=== PATIENT | female | born 1940 | race Caucasian/White ===

== ENCOUNTER 2017-07-10 15:29 | Inpatient (IN) ==
--- NOTE | 2017-07-10 15:40 | Emergency Department Note ---
Disposition Clinical Impression: Congestive heart failure Disposition: Admitted As Inpatient Condition: Fair Time of Disposition: 17:25 ([facility] ) SOB HPI - General Stated Complaint: copd Time Seen by Provider: 07/10/17 15:30 Source: patient Mode of arrival: ambulatory Limitations: no limitations Nursing Notes Reviewed: Yes Vital Signs Reviewed: Yes - History of Present Illness Shortness of breath worsening over the past couple days really got bad today when she dropped her sats and would not come back up patient states she swollen she is edematous last time she did this was on the holidays at [facility] year ago after she turkey and ham states that she has been really good about not doing that patient states though that her sats would not come up EMS came out gave her an additional 40 of Lasix increased her oxygen at 4 L to get her O2 sats of just 90% as result patient was brought to the ER patient normally goes to [facility] 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 Denies: chest pain, pain with inspiration, fever, cough, sputum production, lower extremity pain, polyuria, polydipsia, parasthesias, hemoptysis, diaphoresis, nausea/ vomiting, syncope, abdominal pain, rash, sense of impending doom Treatment prior to arrival: oxygen, diuretics - Related Data Home Medications Medication Instructions Recorded Confirmed Acetaminophen [Tylenol Arthritis] 650 mg PO Q4-6H PRN 05/17/16 07/10/17 Aspirin [Lo-Dose Aspirin EC] 81 mg PO DAILY 05/17/16 07/10/17 Cholecalciferol (Vitamin D3) 2,000 unit PO DAILY 05/17/16 07/10/17 [Vitamin D3] Diltiazem HCl [Diltiazem ER] 240 mg PO DAILY 05/17/16 07/10/17 Esomeprazole Magnesium [Nexium] 40 mg PO DAILY 05/17/16 07/10/17 Folic Acid 1 mg PO DAILY 05/17/16 07/10/17 Furosemide [Lasix] 20 mg PO DAILY 05/17/16 07/10/17 Levothyroxine [Synthroid] 100 mcg PO 0630 05/17/16 07/10/17 Loratadine [Claritin] 10 mg PO DAILY 05/17/16 07/10/17 Meloxicam [Mobic] 15 mg PO DAILY 05/17/16 07/10/17 Metoprolol XL (24 HR) Succ [Toprol 100 mg PO DAILY 05/17/16 07/10/17 XL] Polyethylene Glycol 3350 [MiraLAX] 17 gm PO DAILY 05/17/16 07/10/17 Ranitidine HCl [Heartburn Relief] 150 mg PO BID 05/17/16 07/10/17 Losartan [Cozaar] 50 mg PO DAILY 07/03/16 07/10/17 Albuterol Sulfate [Proair Hfa] 2 puff IH QID PRN 07/10/17 07/10/17 Budesonide/Formoterol 160/4.5 2 puff IH BIDR 07/10/17 07/10/17 [Symbicort 160/4.5] Docusate Sodium [Stool Softener] 250 mg PO BID 07/10/17 07/10/17 Fluticasone Propionate [Flovent 50 mcg IH DAILY 07/10/17 07/10/17 Diskus] Montelukast [Singulair] 10 mg PO DAILY 07/10/17 07/10/17 Propylene Glycol/Peg 400 [Systane 10 ml OP AD PRN 07/10/17 07/10/17 Gel Eye Drops] Sucralfate [Carafate] 1 gm PO QIDAC 07/10/17 07/10/17 Allergies Allergy/AdvReac Type Severity Reaction Status Date / Time Penicillins Allergy Hives Verified 05/17/16 19:32 codeine AdvReac Hallucinati Verified 05/17/16 19:31 ng Erythromycin Base AdvReac Vomiting Verified 05/17/16 19:32 lisinopril AdvReac Cough Verified 05/17/16 19:31 All systems ED: reviewed and negative except as stated. Review of Systems: As Per HPI Constitutional: Reports: weakness. Denies: fever, chills Eyes: Denies: eye pain ENT ED: Denies: ear pain, throat pain, congestion, dysphagia Cardiovascular: Reports: palpitations, dyspnea on exertion, orthopnea. Denies: chest pain Respiratory: Reports: dyspnea, wheezes. Denies: cough Gastrointestinal: Denies: abdominal pain, nausea Genitourinary: Denies: urgency, dysuria Musculoskeletal: Denies: back pain, neck pain Integumentary: Denies: rash Neurological: Denies: headache Psychiatric: Denies: anxiety Endocrine: Denies: fatigue Hematological/Lymphatic: Denies: easy bleeding Allergic/Immunologic: Denies: facial swelling Past Medical History - Past Medical History Attestation: Yes The following information was validated with the patient. Source: patient, old records reviewed, nursing notes reviewed Medical history: Reports: arthritis, atrial fibrillation, GERD, hyperlipidemia, hypertension, thyroid disease Psychiatric history: Reports: no psych history - Social History Smoking Status: Former smoker Smokeless Tobacco Status: No Alcohol use: Reports: none Drug use: Reports: none Physical Exam - General Limitations: no limitations General appearance: alert, in no apparent distress, anxious - Head Head exam: atraumatic, normocephalic, normal inspection - Eye Eye exam: Present: normal appearance, PERRL, EOMI - ENT ENT exam: normal exam, normal oropharynx, mucous membranes moist - Neck Neck exam: Present: normal inspection, full ROM, trachea midline - Chest Chest inspection: Present: normal inspection, symmetric chest wall rise - Respiratory Respiratory exam: Present: normal lung sounds bilaterally - Cardiovascular Cardiovascular exam: Present: regular rate, normal rhythm, normal heart sounds - Abdominal Exam Abdominal exam: Present: soft, Non-Tender, normal bowel sounds. Absent: mass, pulsatile mass - Expanded Upper Extremity Exam Shoulder exam: Present: normal inspection, full ROM Arm exam: Present: normal inspection, full ROM Elbow exam: Present: normal inspection, full ROM Forearm/Wrist exam: Present: normal inspection, full ROM, swelling Hand exam: Present: normal inspection, full ROM, swelling Neurosensory exam: Normal: radial nerve, ulnar nerve, median nerve Vascular exam: Normal: capillary refill, radial pulse, ulnar pulse - Expanded Lower Extremity Exam Hip/Pelvis exam: Present: normal inspection, full ROM Upper leg exam: Present: normal inspection, full ROM Knee exam: Present: normal inspection, full ROM Lower leg exam: Present: normal inspection, full ROM, swelling (distal 2/3rds) Ankle exam: Present: normal inspection, full ROM, swelling Foot/toe exam: Present: normal inspection, full ROM, swelling Neurovascular/Tendon exam: Present: normal capillary refill, normal fine/light touch. Absent: motor deficit, sensory deficit, tendon deficit Gait: observed and normal - Back Exam Back exam: Present: normal inspection, full ROM. Absent: muscle spasm - Neurological Exam Neurological exam: Present: alert, oriented X3, CN II-XII intact, normal gait - Psychiatric Psychiatric exam: Present: normal affect, normal mood - Skin Skin exam: Present: warm, dry, intact, normal color Course Course Narrative: Patient be given 40 Lasix just prior to arrival patient was seen and examined patient shows significant edema of the extremities with pitting noted the patient appears to be clear nail should with any type of activity she does drop down into the high 70s low 80s even on 4 L O2 nasal [place] some of this is normal for her but not popping back up into the low 90s high 80s is not normal for her as a result will be admitted for observation Vital Signs Temperature 97.0 F L 07/10/17 15:39 Pulse Rate 82 07/10/17 15:39 Respiratory Rate 16 07/10/17 15:39 Blood Pressure 168/70 07/10/17 15:39 O2 Sat by Pulse Oximetry 86 07/10/17 15:39 Temperature 97.0 F L 07/10/17 15:39 Pulse Rate 82 07/10/17 15:39 Respiratory Rate 16 07/10/17 15:39 Blood Pressure 168/70 07/10/17 15:39 O2 Sat by Pulse Oximetry 86 07/10/17 15:48 Oxygen Delivery Oxygen Delivery Nasal Cannula Shortness of Breath/Dyspnea - Differential Diagnosis Likely: acute exacerbation of chronic obstructive airways disease, congestive heart failure - Medical Records Medical records reviewed: Yes I reviewed the patient's medical records. - Lab Data Lab results reviewed: Yes I reviewed the patient's lab results. Result diagrams: 07/10/17 15:47 07/10/17 15:47 Lab Results 07/10/17 07/10/17 07/10/17 Range/Units 15:47 15:47 15:47 WBC 10.9 (4.3-11.1) K/mcL RBC 4.03 (3.82-4.97) M/mcL Hgb 11.5 (11.5-15.4) g/dL Hct 35.9 (35.3-44.9) % MCV 89.1 (83.0-100.0) fL MCH 28.5 (28.0-33.3) pg MCHC 32.0 (31.6-35.5) g/dL RDW 18.4 H (11.5-14.5) % Plt Count 327 (140-400) K/mcL MPV 9.4 (9.4-12.4) fL Immature Gran % 1.6 (0-4) % Seg Neutrophils % 73.5 % Lymphocytes % 15.4 % Monocytes % 7.3 % Eosinophils % 1.6 % Basophils % 0.6 % Neutrophils # 8.0 (1.6-8.9) K/mcL Lymphocytes # 1.7 (0.6-4.6) K/mcL Monocytes # 0.8 (0.0-1.3) K/mcL Eosinophils # 0.2 (0.0-0.6) K/mcL Basophils # 0.1 (0.0-0.2) K/mcL PT (9.4-12.1) Seconds INR APTT 29.8 (26.0-36.0) Seconds Sodium (136-145) mEq/L Potassium (3.5-4.5) mEq/L Chloride (98-109) mEq/L Carbon Dioxide (19-29) mEq/L BUN (7-20) mg/dL Creatinine (0.57-1.11) mg/dL Est GFR ( Amer) (> 60) Est GFR (Non-Af Amer) (> 60) BUN/Creatinine Ratio (6-26) Glucose (70-99) mg/dL Calculated Osmolality (280-300) Calcium (8.6-10.8) mg/dL Total Bilirubin (0.2-1.2) mg/dL AST (5-34) Units/L ALT (0-55) Units/L Alkaline Phosphatase (38-126) Units/L Troponin I (0-0.03) ng/mL B-Natriuretic Peptide 529 H (0-100) pg/mL Serum Total Protein (6.0-8.3) g/dL Albumin (3.5-5.0) g/dL Globulin (2.4-3.5) g/dL Albumin/Globulin Ratio (1.1-2.2) 07/10/17 07/10/17 07/10/17 Range/Units 15:47 15:47 15:47 WBC (4.3-11.1) K/mcL RBC (3.82-4.97) M/mcL Hgb (11.5-15.4) g/dL Hct (35.3-44.9) % MCV (83.0-100.0) fL MCH (28.0-33.3) pg MCHC (31.6-35.5) g/dL RDW (11.5-14.5) % Plt Count (140-400) K/mcL MPV (9.4-12.4) fL Immature Gran % (0-4) % Seg Neutrophils % % Lymphocytes % % Monocytes % % Eosinophils % % Basophils % % Neutrophils # (1.6-8.9) K/mcL Lymphocytes # (0.6-4.6) K/mcL Monocytes # (0.0-1.3) K/mcL Eosinophils # (0.0-0.6) K/mcL Basophils # (0.0-0.2) K/mcL PT 11.3 (9.4-12.1) Seconds INR 1.1 APTT (26.0-36.0) Seconds Sodium 135 L (136-145) mEq/L Potassium 3.6 (3.5-4.5) mEq/L Chloride 100 (98-109) mEq/L Carbon Dioxide 25 (19-29) mEq/L BUN 18 (7-20) mg/dL Creatinine 1.24 H (0.57-1.11) mg/dL Est GFR ( Amer) 51 L (> 60) Est GFR (Non-Af Amer) 42 L (> 60) BUN/Creatinine Ratio 15 (6-26) Glucose 117 H (70-99) mg/dL Calculated Osmolality 283 (280-300) Calcium 9.9 (8.6-10.8) mg/dL Total Bilirubin 0.7 (0.2-1.2) mg/dL AST 15 (5-34) Units/L ALT 15 (0-55) Units/L Alkaline Phosphatase 125 (38-126) Units/L Troponin I 0.02 (0-0.03) ng/mL B-Natriuretic Peptide (0-100) pg/mL Serum Total Protein 7.8 (6.0-8.3) g/dL Albumin 3.3 L (3.5-5.0) g/dL Globulin 4.5 H (2.4-3.5) g/dL Albumin/Globulin Ratio 0.7 L (1.1-2.2) - Radiology Data Radiology results reviewed: Yes I reviewed the patient's radiology results. - EKG Data EKG attestation: Yes I reviewed and interpreted this EKG. EKG results narrative: Sinus rhythm nonspecific changes rate 91 P-R 160 QRS 115 Q-T 375 axis XII Critical Care Time Critical Care Time: No
[2017-07-10 16:06] LABS: Basophils # 0.1 K/mcL (0.0-0.2); Basophils % 0.6 %; Eosinophils # 0.2 K/mcL (0.0-0.6); Eosinophils % 1.6 %; Hematocrit 35.9 % (35.3-44.9); Hemoglobin 11.5 g/dL (11.5-15.4); Immature Granulocytes % 1.6 % (0-4); Lymphocytes # 1.7 K/mcL (0.6-4.6); Lymphocytes % 15.4 %; Mean Corpuscular Hemoglobin 28.5 pg (28.0-33.3); Mean Corpuscular Volume 89.1 fL (83.0-100.0); Mean Platelet Volume 9.4 fL (9.4-12.4); Monocytes # 0.8 K/mcL (0.0-1.3); Monocytes % 7.3 %; Platelet Count 327 K/mcL (140-400); Red Blood Count 4.03 M/mcL (3.82-4.97); Red Cell Distribution Width 18.4 % (11.5-14.5); Segmented Neutrophils % 73.5 %
[2017-07-10 16:09] LABS: INR 1.1; Prothrombin Time 11.3 Seconds (9.4-12.1)
[2017-07-10 16:17] LABS: Albumin 3.3 g/dL (3.5-5.0); Albumin/Globulin Ratio 0.7 (1.1-2.2); Bilirubin,Total 0.7 mg/dL (0.2-1.2); Calcium 9.9 mg/dL (8.6-10.8); Globulin 4.5 g/dL (2.4-3.5); Potassium 3.6 mEq/L (3.5-4.5); Total Protein 7.8 g/dL (6.0-8.3)
[2017-07-10] MEDS ORDERED: Ondansetron 4 MG/2 ML VIAL IVP PRN (18:16)
[2017-07-10] MEDS ORDERED: Naloxone 0.4 MG/ML INJ IVP PRN (18:16)
[2017-07-10] MEDS ORDERED: Acetaminophen 325 MG TABLET PO PRN (18:16)
[2017-07-10] MEDS: Bumetanide 1 MG/4 ML VIAL IVP SCH (19:21)
[2017-07-10] MEDS: Fluticasone Propionate Nasal 50 MCG/SPRAY BOTTLE NS SCH (22:55)
[2017-07-10] MEDS: Famotidine 20 MG TABLET PO SCH (23:05)
[2017-07-10] MEDS: Sucralfate 1 GM TABLET PO SCH (23:08)
[2017-07-10] MEDS: Budesonide/Formoterol 160/4.5 MDI IH SCH (23:10)
[2017-07-11] MEDS: Sucralfate 1 GM TABLET PO SCH ×4 (07:01→22:11)
[2017-07-11 07:51] LABS: Basophils # 0.1 K/mcL (0.0-0.2); Basophils % 0.7 %; Eosinophils # 0.3 K/mcL (0.0-0.6); Hematocrit 34.8 % (35.3-44.9); Immature Granulocytes % 1.2 % (0-4); Lymphocytes # 2.1 K/mcL (0.6-4.6); Lymphocytes % 15.3 %; Mean Corpuscular HGB Conc 31.6 g/dL (31.6-35.5); Mean Corpuscular Hemoglobin 27.9 pg (28.0-33.3); Mean Corpuscular Volume 88.3 fL (83.0-100.0); Mean Platelet Volume 9.8 fL (9.4-12.4); Monocytes # 0.9 K/mcL (0.0-1.3); Monocytes % 6.6 %; Neutrophils # 9.9 K/mcL (1.6-8.9); Platelet Count 341 K/mcL (140-400); Red Blood Count 3.94 M/mcL (3.82-4.97); Red Cell Distribution Width 18.4 % (11.5-14.5); Segmented Neutrophils % 74.2 %
[2017-07-11 08:02] LABS: Calcium 9.6 mg/dL (8.6-10.8); Potassium 3.8 mEq/L (3.5-4.5)
[2017-07-11] MEDS: Famotidine 20 MG TABLET PO SCH ×2 (08:43→20:17)
[2017-07-11] MEDS: Folic Acid 1 MG TABLET PO SCH (08:43)
[2017-07-11] MEDS: Cholecalciferol (D-3) 1,000 UNIT TABLET PO SCH (08:43)
[2017-07-11] MEDS: Budesonide/Formoterol 160/4.5 MDI IH SCH ×2 (08:44→22:16)
[2017-07-11] MEDS: Metoprolol XL (24 HR) Succ 50 MG TAB.ER.24H PO SCH (08:44)
[2017-07-11] MEDS: Loratadine 10 MG TABLET PO SCH (08:44)
[2017-07-11] MEDS: Furosemide 20 MG TABLET PO SCH (08:44)
[2017-07-11] MEDS: Diltiazem CD (24hr) 240 MG CAPSULE PO SCH (08:44)
[2017-07-11] MEDS: Aspirin Enteric Coated 81 MG Tablet PO SCH (08:44)
[2017-07-11] MEDS: Bumetanide 1 MG/4 ML VIAL IVP SCH ×2 (08:47→16:44)
[2017-07-11] MEDS ORDERED: Fluticasone Propionate Nasal 50 MCG/SPRAY BOTTLE NS SCH (09:00)
--- NOTE | 2017-07-11 14:28 | Internal Med History&Physical ---
Date of Encounter: 07/11/17 Time of Encounter: 14:26 Internal Medicine - H&P: HPI Chief complaint: Short of breath Admitted From: Emergency Dept Plans for Post Hospital Care: Home History of present illness: Ms. Mccollum is a 77 year old female Patient's had several days of increasing shortness of breath. Any movement at all causes her to desaturation down to the 70s of a percent aiyana. She wears O2 THE TIME AT HOME AND IS HAD SIGNIFICANT COPD. EMERGENCY ROOM THOUGHT MAY BE SHALLOW TOUCH OF CHF WITH IT. BUT THE CHEST X-RAY SHOWS THAT IT IS CLEAR Past Med Surg Social Fam HX - Past Medical History Medical history: arthritis, atrial fibrillation, CHF, COPD, GERD, hyperlipidemia , hypertension, thyroid disease Psychiatric history: no psych history - Social History Smoking Status: Former smoker Smokeless Tobacco Status: No Alcohol use: none Drug use: none - Family History Mother Living Status: Cause of : Heart Failure Hx Family Cardiac Disorders: Yes (CHF, CAD, CVA) Father Hx Family Neurologic Disorders: Yes (Juan Carlos) Internal Medicine - H&P: Meds Acetaminophen [Tylenol Arthritis] 650 mg PO Q4-6H PRN 05/17/16 [History] Aspirin [Lo-Dose Aspirin EC] 81 mg PO DAILY 05/17/16 [History] Cholecalciferol (Vitamin D3) [Vitamin D3] 2,000 unit PO DAILY 05/17/16 [History] Diltiazem HCl [Diltiazem ER] 240 mg PO DAILY 05/17/16 [History] Esomeprazole Magnesium [Nexium] 40 mg PO DAILY 05/17/16 [History] Folic Acid 1 mg PO DAILY 05/17/16 [History] Furosemide [Lasix] 20 mg PO DAILY 05/17/16 [History] Levothyroxine [Synthroid] 100 mcg PO 0630 05/17/16 [History] Loratadine [Claritin] 10 mg PO DAILY 05/17/16 [History] Meloxicam [Mobic] 15 mg PO DAILY 05/17/16 [History] Metoprolol XL (24 HR) Succ [Toprol XL] 100 mg PO DAILY 05/17/16 [History] Polyethylene Glycol 3350 [MiraLAX] 17 gm PO DAILY 05/17/16 [History] Ranitidine HCl [Heartburn Relief] 150 mg PO BID 05/17/16 [History] Losartan [Cozaar] 50 mg PO DAILY 07/03/16 [History] Albuterol Sulfate [Proair Hfa] 2 puff IH QID PRN 07/10/17 [History] Budesonide/Formoterol 160/4.5 [Symbicort 160/4.5] 2 puff IH BIDR 07/10/17 [ History] Docusate Sodium [Stool Softener] 250 mg PO BID 07/10/17 [History] Fluticasone Propionate [Flovent Diskus] 50 mcg IH DAILY 07/10/17 [History] Montelukast [Singulair] 10 mg PO DAILY 07/10/17 [History] Propylene Glycol/Peg 400 [Systane Gel Eye Drops] 10 ml OP AD PRN 07/10/17 [ History] Sucralfate [Carafate] 1 gm PO QIDAC 07/10/17 [History] 3 Allergy/AdvReac Type Severity Reaction Status Date / Time Penicillins Allergy Hives Verified 05/17/16 19:32 codeine AdvReac Hallucinati Verified 05/17/16 19:31 ng Erythromycin Base AdvReac Vomiting Verified 05/17/16 19:32 lisinopril AdvReac Cough Verified 05/17/16 19:31 All Systems PM: A 10-system review of systems was performed and is negative for pertinent findings except as documented above in the HPI. - Constitutional Constitutional: fatigue, no anorexia, no chills, no excessive sweating, no fever (s), no falls, no lethargy, no malaise, no night sweats, no weakness, no weight gain, no weight loss - EENT Eyes: no blurry vision, no change in vision, no decreased night vision, no diplopia, no discharge, no dry eye, no floaters, no irritation, no itchy eyes, no loss of peripheral vision, no loss of vision, no pain, no photophobia, no seeing flashes, no spots in vision, no tunnel vision, no other visual disturbances Ears: no ear discharge, no tinnitus Nose, mouth and throat: no bleeding gums, no change in voice, no dental pain, no dysphagia, no epistaxis, no facial pain, no hoarseness, no mouth pain, no nasal congestion, no nasal discharge, no nasal obstruction, no neck mass, no neck pain, no nose pain, no odynophagia, no post-nasal drip, no sinus pain, no sinus pressure, no sore throat, no throat swelling, no tongue swelling - Breasts Breasts: no change in shape, no mass, no nipple discharge, no skin changes, no swelling - Cardiovascular Cardiovascular ROS IM: dyspnea, dyspnea on exertion, orthopnea, no chest pain, no claudication, no diaphoresis, no edema, no irregular heart rhythm, no lightheadedness, no syncope - Respiratory Respiratory: dyspnea, no hemoptysis, no wheezing, no snoring, no stridor, no chest congestion, no excessive phlegm production, no change in phlegm color, no pain with cough - Gastrointestinal Gastrointestinal: no abdominal pain, no belching, no bloating, no change in bowel habits, no change in stool character, no coffee ground emesis, no constipation, no cramping, no diarrhea, no dyspepsia, no dysphagia, no excessive flatus, no fecal incontinence, no heartburn, no loose stools, no melena, no nausea, no odynophagia, no tenesmus, no vomiting - Genitourinary Genitourinary: no as per HPI, no abnormal vaginal bleeding, no amenorrhea, no breast change in shape, no breast mass, no breast pain, no breast skin changes, no breast swelling, no change in libido, no change in urinary stream, no difficulty conceiving, no difficulty urinating, no difficulty voiding, no dysmenorrhea, no dyspareunia, no dysuria, no flank pain, no genital lesions, no genital pruritis, no hematuria, no hot flashes, no light periods, no menorrhagia , no metrorrhagia, no nipple discharge, no nocturia, no pelvic pain, no post void dribbling, no prolapse symptoms, no urinary frequency, no urinary hesitancy , no urinary incontinence, no urinary urgency, no vaginal discharge, no vaginal dryness, no vaginal odor, no vaginal pruritis Additional comments: Not applicable - Musculoskeletal Musculoskeletal ROS IM: no arthralgias, no atrophy, no back pain, no deformity, no joint swelling, no limited range of motion, no muscle cramps, no muscle weakness, no myalgias, no neck pain, no numbness, no stiffness, no tingling - Integumentary Integumentary IM: no erythema, no new lesions, no non-healing lesions, no pruritus, no rash, no skin ulcer, no sores, no unusual bruising, no jaundice - Neurological Neurological ROS: no abnormal gait, no abnormal movements, no abnormal speech, no behavioral changes, no burning sensations, no confusion, no convulsions, no disequilibrium, no dizziness, no focal weakness, no frequent falls, no lack of coordination, no loss of vision, no memory loss, no numbness, no paresthesias, no radicular pain, no restless legs, no tingling, no tremor(s), no vertigo, no weakness, no other visual disturbances - Psychiatric Psychiatric: no abnormal sleep pattern, no anhedonia, no anxiety, no auditory hallucinations, no behavioral changes, no change in appetite, no change in libido, no confusion, no depression, no difficulty concentrating, no hallucinations, no homicidal ideation, no hopelessness, no irritability, no memory loss, no mood swings, no panic attacks, no paranoia, no suicidal ideation , no visual hallucinations, no tactile - Endocrine Endocrine IM: no cold intolerance, no deeping of the voice, no excessive sweating, no fatigue, no flushing, no polydipsia, no polyphagia, no polyuria - Hematologic/Lymphatic Hematologic/Lymphatic: no easy bleeding, no easy bruising, no lymphadenopathy - Allergic/Immunologic Allergic/Immunologic: no tongue swelling, no throat swelling, no itchy eyes, no seasonal rhinorrhea, no uticaria, no wheezing, no GI upset with certain foods, no lip swelling - Constitutional Vitals: Temp Pulse Resp BP Pulse Ox 98.3 F 94 17 143/77 87 07/11/17 11:36 07/11/17 11:36 07/11/17 11:36 07/11/17 11:36 07/11/17 11:36 Internal Med - H&P Results - Labs CBC & Chem 7: 07/11/17 07:20 07/11/17 07:20 Labs: Short CBC 07/11/17 Range/Units 07:20 WBC 13.4 H (4.3-11.1) K/mcL Hgb 11.0 L (11.5-15.4) g/dL Hct 34.8 L (35.3-44.9) % Plt Count 341 (140-400) K/mcL Neutrophils # 9.9 H (1.6-8.9) K/mcL BMP 07/11/17 07:20 Sodium 133 L Potassium 3.8 Chloride 99 Carbon Dioxide 22 BUN 17 Creatinine 1.25 H Glucose 148 H Calcium 9.6 - VTE Documentation of Mechanical Device: Graduated compression elastic hosiery
[2017-07-11] MEDS: Fluticasone Propionate Nasal 50 MCG/SPRAY BOTTLE NS SCH (20:17)
[2017-07-11] MEDS: PROPYLENE GLYCOL OP PRN (20:19)
[2017-07-11] MEDS: PEG OP PRN (20:19)
[2017-07-12] MEDS: Sucralfate 1 GM TABLET PO SCH ×2 (05:37→11:33)
[2017-07-12 07:00] VITALS: BP 148/62
[2017-07-12] MEDS: Bumetanide 1 MG/4 ML VIAL IVP SCH (08:15)
[2017-07-12] MEDS: Diltiazem CD (24hr) 240 MG CAPSULE PO SCH (08:19)
[2017-07-12] MEDS: Furosemide 20 MG TABLET PO SCH (08:19)
[2017-07-12] MEDS: Metoprolol XL (24 HR) Succ 50 MG TAB.ER.24H PO SCH (08:19)
[2017-07-12] MEDS: Famotidine 20 MG TABLET PO SCH (08:20)
[2017-07-12] MEDS: Loratadine 10 MG TABLET PO SCH (08:20)
[2017-07-12] MEDS: Aspirin Enteric Coated 81 MG Tablet PO SCH (08:20)
[2017-07-12] MEDS: Folic Acid 1 MG TABLET PO SCH (08:20)
[2017-07-12] MEDS: Cholecalciferol (D-3) 1,000 UNIT TABLET PO SCH (08:26)
[2017-07-12] MEDS: Budesonide/Formoterol 160/4.5 MDI IH SCH (09:28)
--- NOTE | 2017-07-12 11:45 | Internal Med Progress Note ---
Date of Encounter: 07/12/17 Time of Encounter: 16:00 - Assessment and plan (1) Congestive heart failure Current Visit: Yes Status: Chronic Assessment and plan: Patient appears improved since admission with respiratory effort. Patient continues to have coarse rales heard to lower apical posterior fills. Denies any productive cough. States that she continues to have dyspnea and family approximately 50 feet, but that has been her baseline. We will obtain a chest x -ray to evaluate her pulmonary congestion. We will continue with current medications. Qualifiers: Congestive heart failure chronicity: chronic Qualified Code(s): I50.9 - Heart failure, unspecified (2) Atrial fibrillation Current Visit: Yes Status: Chronic Assessment and plan: No acute issues. Heart rate is actually been regular and less than 100 on current medications. We will continue with current plan of care and medications Qualifiers: Atrial fibrillation type: chronic Qualified Code(s): I48.2 - Chronic atrial fibrillation - Subjective Interval history: Patient states that her respiratory effort has improved greatly since her admission. Patient currently denies any productive cough. Patient states that she continues to have dyspnea after ambulating approximately 50 feet, which has been her baseline prior to admission. Patient states she continues with orthopnea. Denies any fever or chill. Patient inquiring about being discharged to home. - Constitutional Vitals: Temp Pulse Resp BP Pulse Ox 98.3 F 79 20 148/62 91 07/12/17 06:59 07/12/17 06:59 07/12/17 06:59 07/12/17 06:59 07/12/17 09:26 General appearance: Present: A&O X 3 - Head Head exam: Present: atraumatic, normocephalic - Respiratory Respiratory exam: Present: CTAB, rales. Absent: accessory muscle use, rhonchi, wheezes Additional comments: Lungs are clear to refills, but patient continues to have coarse rales heard to the lower posterior mg. Respiratory effort appears relaxed and regular. Oximetry continues to show greater than 90% on 2 L of oxygen - Cardiovascular Cardiovascular exam: Present: +S1, +S2 Additional comments: Heart sounds are distant and regular. Patient with history of atrial flutter but currently shows regular heart rate. +1 pedal edema - GI/Abdominal GI/Abdominal exam: Present: normal bowel sounds, soft, no peritoneal signs. Absent: distended, tenderness - Neurological Exam Neurological exam: Present: CN II-XII intact, oriented X3, no focal deficits. Absent: pronater drift, facial droop, speech deficit - Skin Skin exam: Present: dry, intact Internal Medicine: Result - Labs CBC & Chem 7: 07/11/17 07:20 07/11/17 07:20 - ABG Interpretation ABG results: PT/INR, D-dimer PT 11.3 Seconds (9.4-12.1) 07/10/17 15:47 - Impressions Impressions Chest X-Ray 07/12/17 10:58 IMPRESSION: No acute process. Stable exam. D/ / Herbie Haro MD / Herbie Haro MD Interpreting Provider: Herbie Haro MD - VTE Documentation of Mechanical Device: Graduated compression elastic hosiery Consult Discharge Plan - Plan Instructions: Chronic Obstructive Pulmonary Disease (DC) Referrals: Pee Tafoya MD [Primary Care Provider] - 07/18/17 1:00 pm (follow up appointment)
[2017-07-12] MEDS: PEG OP PRN (12:38)
[2017-07-12] MEDS: PROPYLENE GLYCOL OP PRN (12:38)
--- NOTE | 2017-07-12 14:21 | Discharge Summary ---
<Louis Acosta S - Last Filed: 07/12/17 14:57> Date of Encounter: 07/12/17 - Discharge Medications Home Medications: Acetaminophen [Tylenol Arthritis] 650 mg PO Q4-6H PRN 05/17/16 [History] Aspirin [Lo-Dose Aspirin EC] 81 mg PO DAILY 05/17/16 [History] Cholecalciferol (Vitamin D3) [Vitamin D3] 2,000 unit PO DAILY 05/17/16 [History] Diltiazem HCl [Diltiazem ER] 240 mg PO DAILY 05/17/16 [History] Esomeprazole Magnesium [Nexium] 40 mg PO DAILY 05/17/16 [History] Folic Acid 1 mg PO DAILY 05/17/16 [History] Furosemide [Lasix] 20 mg PO DAILY 05/17/16 [History] Levothyroxine [Synthroid] 100 mcg PO 0630 05/17/16 [History] Loratadine [Claritin] 10 mg PO DAILY 05/17/16 [History] Meloxicam [Mobic] 15 mg PO DAILY 05/17/16 [History] Metoprolol XL (24 HR) Succ [Toprol XL] 100 mg PO DAILY 05/17/16 [History] Polyethylene Glycol 3350 [MiraLAX] 17 gm PO DAILY 05/17/16 [History] Ranitidine HCl [Heartburn Relief] 150 mg PO BID 05/17/16 [History] Losartan [Cozaar] 50 mg PO DAILY 07/03/16 [History] Albuterol Sulfate [Proair Hfa] 2 puff IH QID PRN 07/10/17 [History] Budesonide/Formoterol 160/4.5 [Symbicort 160/4.5] 2 puff IH BIDR 07/10/17 [ History] Docusate Sodium [Stool Softener] 250 mg PO BID 07/10/17 [History] Fluticasone Propionate [Flovent Diskus] 50 mcg IH DAILY 07/10/17 [History] Montelukast [Singulair] 10 mg PO DAILY 07/10/17 [History] Propylene Glycol/Peg 400 [Systane Gel Eye Drops] 10 ml OP AD PRN 07/10/17 [ History] Sucralfate [Carafate] 1 gm PO QIDAC 07/10/17 [History] Allergies/Adverse Reactions: 3 Allergy/AdvReac Type Severity Reaction Status Date / Time Penicillins Allergy Hives Verified 05/17/16 19:32 codeine AdvReac Hallucinati Verified 05/17/16 19:31 ng Erythromycin Base AdvReac Vomiting Verified 05/17/16 19:32 lisinopril AdvReac Cough Verified 05/17/16 19:31 Date of admission: 07/11/17 17:33 Primary care physician: Pee Tafoya MD - Patient Status Disposition: Home, Self-Care Condition: Fair - Discharge Instructions Instructions: Chronic Obstructive Pulmonary Disease (DC) Follow Up With: Pee Tafoya MD [Primary Care Provider] - 07/18/17 1:00 pm (follow up appointment) Forms: ED Satisfaction Letter - Diet and Activity Activity: wear oxygen at all times Hospital course: Ms. Mccollum is a 77 year old female - Time Spent with Patient Total time spent providing and/or coordinating discharge services: - Constitutional Vitals: Temp Pulse Resp BP Pulse Ox 98.3 F 79 20 148/62 91 07/12/17 06:59 07/12/17 06:59 07/12/17 06:59 07/12/17 06:59 07/12/17 09:26 <Reynaldo Feliciano - Last Filed: 07/12/17 16:03> Date of Encounter: 07/12/17 Time of Encounter: 14:16 - Discharge Diagnosis (1) Congestive heart failure Priority: Primary Status: Chronic Qualifiers: Congestive heart failure type: unspecified congestive heart failure type Congestive heart failure chronicity: chronic Qualified Code(s): I50.9 - Heart failure, unspecified (2) Atrial fibrillation Priority: Secondary Status: Chronic Qualifiers: Atrial fibrillation type: chronic Qualified Code(s): I48.2 - Chronic atrial fibrillation Date of admission: 07/11/17 17:33 Primary care physician: Pee Tafoya MD Discharging clinician: Louis Acosta Anticipated date of discharge: 07/12/17 - Patient Status Functional capacity at discharge: uses cane/walker Overall status at discharge: patient is progressing back to baseline Hospital course: Ms. Mccollum is a 77 year old female Patient was admitted for exacerbation of CHF. Patient was at home became short of breath and called EMS. Patient reportedly received a dose of Lasix during transport to hospital and while in the emergency department she diuresed well. Pt noted to have hypoxia during ED stay with saturations dropping to 80-85% with minimal exertion. Patient continued to be diuresed overnight and responded well. Patient has progressed well and today states minimal dyspnea during exertion. Chest x-ray was obtained which shows clearing in no acute process. Recent saturation today remained greater than 90 while on oxygen. Pt states that she feels comfortable at going home. Patient received education on CHF management and dietary during this hospital stay - Time Spent with Patient Total time spent providing and/or coordinating discharge services: - Constitutional Vitals: Temp Pulse Resp BP Pulse Ox 98.3 F 79 20 148/62 91 07/12/17 06:59 07/12/17 06:59 07/12/17 06:59 07/12/17 06:59 07/12/17 09:26 General appearance: Present: A&O X 3 - Head Head exam: Present: atraumatic, normocephalic - Respiratory Respiratory exam: Present: CTAB. Absent: accessory muscle use, rhonchi, wheezes Additional comments: Patient continues to have coarse rales throughout the lower half of her posterior mg. Respiratory rate remains regular and relaxed during rest. Patient noted to continue to have dyspnea on exertion when ambulating greater than 50 feet. - Cardiovascular Cardiovascular exam: Present: RRR, +S1, +S2. Absent: diastolic murmur, gallop, rubs, systolic murmur Additional comments: +1 pedal edema - GI/Abdominal GI/Abdominal exam: Present: normal bowel sounds, soft, no peritoneal signs. Absent: distended, tenderness - Neurological Exam Neurological exam: Present: CN II-XII intact, oriented X3, no focal deficits. Absent: pronater drift, facial droop, speech deficit - Skin Skin exam: Present: dry, intact - VTE Documentation of Mechanical Device: Graduated compression elastic hosiery
--- NOTE | 2017-07-12 18:35 | Electrocardiograph Report ---
[place] [id number] Test Date: 2017-07-10 Pat Name: Amira Mccollum Department: 2000 Room: 115 Gender: F Rework Operator: : [id number] Requested By: Devorah Davalos Order Number: [id number] Reading MD: Etienne Freedman DO Measurements Intervals [place] Rate: 91 P: 37 FL: 160 QRS: 12 QRSD: 115 T: -6 QT: 375 QTc: 424 Interpretive Statements Sinus rhythm Possible lateral myocardial infarction Possible left ventricular hypertrophy Electronically Signed On 07-12-2017 18:34:15 EST by Etienne Freedman DO
== END 2017-07-12 16:30 | disposition home or self-care (01) | DRG 293 ==
LOC: EMEROOGRE 15:29 → INPGRE 15:29
PROVIDERS: ADMIT Internal Medicine; ATTEND Internal Medicine